=== PATIENT | male | born 1995 | race Caucasian/White ===

== ENCOUNTER 2017-10-05 23:48 | Emergency (ER) | payer SELFPAY ==
--- NOTE | 2017-10-06 07:51 | RAD ---
2 VIEW CHEST: Date: 10/05/17 HISTORY: Cough. FINDINGS: Lungs are clear. Heart and mediastinum appear unremarkable. Osseous structures unremarkable. IMPRESSION: No acute findings. POS: [facility]
== END 2017-10-06 00:22 | disposition home or self-care (01) ==
LOC: ERS 23:48
DX: R04.2 Hemoptysis (principal); J06.9 Acute upper respiratory infection, unspecified; F31.9 Bipolar disorder, unspecified; F90.9 Attention-deficit hyperactivity disorder, unspecified type; F17.210 Nicotine dependence, cigarettes, uncomplicated
CPT/HCPCS: 71046